=== PATIENT | male | born 1970 | race Caucasian/White ===

== ENCOUNTER 2019-12-10 10:10 | Emergency (ER) | payer MEDICARE, OTHER ==
[2019-12-10] MEDS ORDERED: CLONAZEP ODT0.5 MG PO (10:25)
[2019-12-10] MEDS ORDERED: PREGABALIN50 MG PO (10:26)
[2019-12-10] MEDS ORDERED: ESCITALOPRAM OX10 MG PO (10:27)
[2019-12-10] MEDS ORDERED: GABAPENTIN600 MG PO (10:27)
[2019-12-10 10:50] LABS: HEMATOCRIT 40.3 % (39.0-50.0); HEMOGLOBIN 12.7 g/dl (14.0-18.0); IMMATURE GRANULOCYTES 0.3 % (0.0-5.0); MEAN CELL VOLUME 94.8 fL CALC (80.0-100.0); MEAN CORPUSCULAR HGB 29.9 pG CALC (26.0-32.0); MEAN CORPUSCULAR HGB CONC 31.5 g/dL CAL (32.0-36.0); NEUT# 4.36 thou/uL (1.82-7.42); RED BLOOD COUNT 4.25 mill/uL (4.70-6.10); RED CELL DISTRI WIDTH 12.9 % (11.5-15.5)
[2019-12-10 10:53] LABS: URINE BILIRUBIN - DIPSTICK NEGATIVE (NEGATIVE); URINE BLOOD DIPSTICK NEGATIVE (NEGATIVE); URINE COLOR YELLOW; URINE GLUCOSE - DIPSTICK NEGATIVE (NEGATIVE); URINE KETONE NEGATIVE (NEGATIVE); URINE LEUK ESTERASE NEGATIVE (NEGATIVE); URINE NITRITE - DIPSTICK NEGATIVE (Negative); URINE PROTEIN - DIPSTICK NEGATIVE (NEG-TRACE); URINE SPECIFIC GRAVITY 1.015; URINE UROBILINOGEN - DIPSTICK 0.2 E.U./dL (0.2)
[2019-12-10 10:58] LABS: ALBUMIN 3.8 g/dL (3.2-5.0); ALKALINE PHOSPHATASE 88 u/l (38-126); ANION GAP 12 (6-22 (CALC)); BILIRUBIN, TOTAL 0.3 mg/dL (0.0-1.4); BUN 10 mg/dL (9-20); BUN/CREATININE RATIO 15 (12-20 (CALC)); CARBON DIOXIDE 24 mmol/l (22-30); CHLORIDE 107 mmol/l (95-108); CREATININE 0.6 mg/dL (0.7-1.3); ETHYL ALCOHOL 198 mg/dl (0-30); GFR > 60 ML/MIN (>=60 (CALC)); GFR FOR AFR.AMER. > 60 ML/MIN (>=60 (CALC)); SGOT/AST 46 u/l (17-59); SODIUM 139 mmol/l (137-146); TOTAL PROTEIN 6.6 g/dL (6.3-8.2)
[2019-12-10 11:10] LABS: MYOGLOBIN 22 ng/mL (0 - 121)
[2019-12-10 12:27] VITALS: BP 122/81
== END 2019-12-10 12:27 | disposition short-term general hospital (02) ==
LOC: ED 10:10
PROVIDERS: Emergency Medicine
DX: R45.851 Suicidal ideations (principal); F32.9 Major depressive disorder, single episode, unspecified; F10.10 Alcohol abuse, uncomplicated; F41.9 Anxiety disorder, unspecified; F17.200 Nicotine dependence, unspecified, uncomplicated
CPT/HCPCS: J2060

== ENCOUNTER 2019-12-15 11:15 | Observation (INO) | payer MEDICARE, OTHER ==
[~2019-12-15] VITALS: Ht 182.9 cm; Wt 77.2 kg
[~2019-12-15 11:15] MED LIST: CLONAZEP ODT0.5 MG PO; ESCITALOPRAM OX10 MG PO; GABAPENTIN600 MG PO; PREGABALIN50 MG PO
--- NOTE | 2019-12-15 11:35 | NUR ---
TO ROOM VIA EMS STRETCHER FOR BEDSIDE TRIAGE
--- NOTE | 2019-12-15 12:27 | NUR ---
PT REPEATEDLY STATES HE NEEDS HIS MEDICATIONS AND CAN HE HAVE SOMETHING FOR PAIN AND NAUSEA, AND ASKS EVERYONE THAT WALKS INTO THE ROOM FOR SOMETHING FOR PAIN, REMINDED OF PLAN OF CARE AND TIME RESTRAINTS. VERBALIZED UNDERSTADNING THEN ASKED NEXT PERSON THAT WALKED INTO ROOM-
--- NOTE | 2019-12-15 12:29 | NUR ---
IV ACCESS OBTAINED PT TOOLERATED
[2019-12-15 12:53] LABS: HEMATOCRIT 42.8 % (39.0-50.0); HEMOGLOBIN 13.9 g/dl (14.0-18.0); IMMATURE GRANULOCYTES 0.4 % (0.0-5.0); MEAN CORPUSCULAR HGB 30.2 pG CALC (26.0-32.0); MEAN CORPUSCULAR HGB CONC 32.5 g/dL CAL (32.0-36.0); NEUT# 7.67 thou/uL (1.82-7.42); RED BLOOD COUNT 4.6 mill/uL (4.70-6.10); RED CELL DISTRI WIDTH 12.8 % (11.5-15.5)
[2019-12-15 12:56] LABS: URINE BILIRUBIN - DIPSTICK NEGATIVE (NEGATIVE); URINE BLOOD DIPSTICK NEGATIVE (NEGATIVE); URINE COLOR YELLOW; URINE GLUCOSE - DIPSTICK NEGATIVE (NEGATIVE); URINE KETONE NEGATIVE (NEGATIVE); URINE LEUK ESTERASE NEGATIVE (NEGATIVE); URINE NITRITE - DIPSTICK NEGATIVE (Negative); URINE PROTEIN - DIPSTICK NEGATIVE (NEG-TRACE); URINE SPECIFIC GRAVITY <=1.005; URINE UROBILINOGEN - DIPSTICK 0.2 E.U./dL (0.2)
[2019-12-15 13:11] LABS: ALBUMIN 4.4 g/dL (3.2-5.0); ALKALINE PHOSPHATASE 89 u/l (38-126); BUN 10 mg/dL (9-20); BUN/CREATININE RATIO 15 (12-20 (CALC)); CARBON DIOXIDE 20 mmol/l (22-30); CREATININE 0.7 mg/dL (0.7-1.3); ETHYL ALCOHOL 105 mg/dl (0-30); GFR > 60 ML/MIN (>=60 (CALC)); GFR FOR AFR.AMER. > 60 ML/MIN (>=60 (CALC)); LIPASE 36 u/l (23-300); SGOT/AST 52 u/l (17-59); SODIUM 134 mmol/l (137-146); TOTAL PROTEIN 7.4 g/dL (6.3-8.2)
[2019-12-15 13:13] LABS: ANION GAP 14 (6-22 (CALC)); BILIRUBIN, TOTAL 0.6 mg/dL (0.0-1.4); CHLORIDE 104 mmol/l (95-108)
--- NOTE | 2019-12-15 13:25 | NUR ---
IVF INFUISNG AND PT TOLERATES WELL, CALL COLIN PECK, VS STABLE
--- NOTE | 2019-12-15 13:44 | NUR ---
PT NOW ASKING FOR FOOD STATING COULD I GET SOMETHING TO EAT I THINK THAT WOULD REALLY HELP CALM ME DOWN SOME. NOTIFIED OF PT REQUEST
--- NOTE | 2019-12-15 14:35 | NUR ---
PT RESTING AWARE OF CHAIDEZ ACT AND PLANNED ADMISSION, ALERT AND ORIENTED, CALL SHAW WITHIN REACH
--- NOTE | 2019-12-15 15:16 | NUR ---
FOOD TRAY PROVIDED ADN PT CONINTUES TO COMPLAIN OF PAIN MD NOTIFIED AND NEW ORDERS REC'D.
--- NOTE | 2019-12-15 16:10 | NUR ---
PT RESTING WITH EYES CLOSED, NO FURTHER COMPLAINTS OFFERED AWARE OF PLANNED ADMISSION. CALL SHAW WITHIN REACH
--- NOTE | 2019-12-15 17:05 | NUR ---
REPORT CALLED TO TASHA ROYAL IN ICU
--- NOTE | 2019-12-15 17:15 | NUR ---
PT TO ICU BED 7 VIA WHEELCHAIR ACCOMAPNIED BY ER NURSE AND SITTER. PT TO BED WITHOUT ASSISTANCE. PT IS ALERT AND ORIENTED X3. ADMISSION ASSESSMENT COMPLETED AT THIS TIME. PT IS VERY ABRUPT AND NOT WANTING TO OPEN EYES AND ANSWER QUESTIONS. HE ONLY WANTS "MEDICATIONS FOR ANXIETY". ORIENTED TO ROOM AND UNIT. PT REFUSES TO SIGN BELONGING SHEET AND REFUSES TO SIGN DONT FALL SHEET. CALL LIGHT IN REACH. SITTER AT BEDSIDE. WILL CONTINUE TO MONITOR.
--- NOTE | 2019-12-15 17:17 | NUR ---
PT TRANSPORTED TO ICU WITH ALL BELONGINGS WITH PT AND SITTER WITH PT.
[2019-12-15 17:30] VITALS: BP 117/74
--- NOTE | 2019-12-15 17:30 | NUR ---
PHONED DR FARRIS FOR ORDERS FOR ANXIETY MEDICATION.
[2019-12-15 17:45] VITALS: BP 119/74
--- NOTE | 2019-12-15 17:55 | NUR ---
LAB AT BEDSIDE FOR REPEAT TROPONIN
[2019-12-15 18:00] VITALS: BP 120/73
--- NOTE | 2019-12-15 19:20 | NUR ---
awake. quiet & cooperative. c/o anxiety. does not appear anxious. ativan 0.5mg po given. neurosurgery spine physician shows sinus rhythm hr 72. #18 lac banana bag infusing @ 125cchr. po fluids taken well. has not voided. covid swab collected & sent to lab. fall, air/contact precautions cont. pt aware of kidd act. sitter @ bedside.
[2019-12-15 20:00] VITALS: BP 125/73
--- NOTE | 2019-12-15 22:00 | NUR ---
eyes closed. no distress. manager monitoring shows sinus rhythm.
--- NOTE | 2019-12-15 23:30 | NUR ---
lab here. pt refused blood drawn.
[2019-12-16] VITALS (12 sets, daily range): BP systolic 114–132; BP diastolic 65–84
--- NOTE | 2019-12-16 02:00 | NUR ---
resting quietly. resps even & unlabored. no apparent distress. sitter @ bedside.
--- NOTE | 2019-12-16 04:00 | NUR ---
eyes closed. no distress. monitoring analyst shows sinus rhythm hr 62.
--- NOTE | 2019-12-16 05:00 | NUR ---
lab here. blood drawn.
--- NOTE | 2019-12-16 06:45 | NUR ---
RECIEVED REPORT FROM LEXI MENDEZ. ASSUMED PT CARE.
--- NOTE | 2019-12-16 07:30 | NUR ---
PT A&O X4, ABLE TO MAKE NEEDS KNOWN. CHAIDEZ ACT IN PLACE AND SITTER AT BEDSIDE. PT DENIES CP, SOB OF DISTRESS AT THIS TIME. REMAINS SR ON TELEMETRY, HR 60. AFEBRILE, RESPIRATIONS CLEAR/UNLABORED, LS CLEAR THROUGHOUT. SA02@97%RA, ABDOMEN SOFT NON-TENDER, LBM 8-21-20. PT REPORTS BEING VERY ANXIOUS, REQUESTING MEDICATED. PT MEDICATED ORDERED. PER PT REQUEST. CALL LIGHT IN REACH. WILL MONITOR.
--- NOTE | 2019-12-16 09:00 | NUR ---
DR. FARRIS AT BEDSIDE FOR ASSESSMENT AND TO DISCUSS PLAN OF CARE, NEW ORDERS RECIEVED. ELMA REMAINS AT BEDSIDE.
--- NOTE | 2019-12-16 09:15 | NUR ---
PT OFF UNIT WITH SITTER TO CT OF CHEST VIA WC.
--- NOTE | 2019-12-16 09:45 | NUR ---
PT BACK ON UNIT, TOLERATED WELL. SITTER REMAINS AT BEDSIDE.
--- NOTE | 2019-12-16 11:30 | NUR ---
DIETARY ON UNIT, LUNCH TRAY SET UP. SITTER REMAINS AT BEDSIDE. WILL MONITOR.
--- NOTE | 2019-12-16 12:59 | NUR ---
PT RESTING IN BED WITH COVERS PULLED UP OVER HEAD. RESPIRATIONS EVEN/UNLABORED. NO DISTRESS NOTED AT THIS TIME, SITTER REMAINS AT BEDSIDE.
--- NOTE | 2019-12-16 14:43 | NUR ---
PT RESTING IN BED WATCHING TV. OFFERS NO COMPLAINTS AT THIS TIME. SITTER REMAINS AT BEDSIDE. CALL LIGHT IN REACH. WILL MONITOR.
--- NOTE | 2019-12-16 16:45 | NUR ---
PT RESTING IN BED WITH EYES CLOSED. NO DISTRESS NOTED. SITTER AT BEDSIDE. CALL LIGHT IN REACH. WILL MONITOR.
--- NOTE | 2019-12-16 18:04 | NUR ---
PT RESTING IN BED, EATING DINNER TRAY. SITTER REMAINS AT BEDSIDE. CALL LIGHT IN REACH. WILL MONITOR.
--- NOTE | 2019-12-16 20:00 | NUR ---
ASSESSMENT COMPLETED. IV SITE PATENT AND SL. SITTER AT BEDSIDE. PT. IS RESTING AND CALM AT THIS TIME. FOOD AND NUTRITION SERVICES SUPERVISOR IN PLACE. ENCOURAGED TO CALL FOR ANY NEEDS. CALL LIGHT IS IN REACH. WILL CONTINUE TO MONITOR.
--- NOTE | 2019-12-16 23:05 | NUR ---
PT. SITTING UP IN BED WITH SITTER AT BEDSIDE; CALM WITH NO DISTRESS NOTED. SNACK PROVIDED. WILL CONTINUE TO MONITOR. CALL LIGHT IS IN REACH.
[2019-12-17 01:00] VITALS: BP 92/46
--- NOTE | 2019-12-17 01:00 | NUR ---
RESTING IN BED WITH EYES CLOSED; RESP. EVEN AND UNLABORED. SITTER AT BEDSIDE.
[2019-12-17 03:00] VITALS: BP 127/66
--- NOTE | 2019-12-17 03:35 | NUR ---
PT. RESTING IN BED WITH NO DISTRESS NOTED. HR WILL OCCASSIONALY DROP TO 47 AND THEN RETURN TO 50'S. NO SYMPTOMS NOTED. SITTER AT BEDSIDE.
[2019-12-17 05:15] VITALS: BP 127/75
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
--- NOTE | 2019-12-17 06:34 | NUR ---
PT. C/O GENERALIZED PAIN AND MEDICATED WITH ORDERED PRN MORPHINE; WILL REASSESS. SITTER AT BEDSIDE.
[2019-12-17 08:00] VITALS: BP 115/78
--- NOTE | 2019-12-17 08:48 | NUR ---
PT SEEN AT REST IN THE BED, APPEARS TO BE IN NO ACUTE DISTRESS. SITTER AT BEDSIDE. NO COMPLAINT OF CHEST PAIN OR OTHERWISE. LUNGS CLEAR, RA. BM YESTERDAY. SKIN INTACT.
--- NOTE | 2019-12-17 09:45 | NUR ---
PT SEEN BY DR FARRIS THIS MORNING, DISCUSSES PLAN OF CARE. PT STATES THAT HE NEEDS HIS MEDS AND IT HAS BEEN AN ISSUE TO GET THEM AFTER DISCHARGE. PT APPEARS CALM, NOT THREATENING HIMSELF OR OTHERS. SITTER AT BEDSIDE.
[2019-12-17 14:00] VITALS: BP 114/72
--- NOTE | 2019-12-17 16:21 | NUR ---
PT CONTINUES BEFORE, NO REAL CHANGE IN STATUS. PT DENIES CHEST PAIN OF SHORTNESS OF BREATH. SITTER REMAINS AT BEDSIDE. NO AGGRESSION SEEN.
--- NOTE | 2019-12-17 19:00 | NUR ---
RECEIVED REPORT. PT BEDRESTING. PSA AT BEDSIDE. DENIES PAIN OR DISTRESS.REQUESTED A NICOTENE PATCH OR GUM. MD NOTIFIED. ALSO, REPORTS NAME IS SPELLED WRONG. REGISTRATION NOTIFIED. NAME IS SPELLED THE SAME LAST ADMISSION AND IS SPELLED THE SAME ON THE CHAIDEZ ACT FORM. PT DOES NOT HAVE ANY PHOTO ID OR PHOTO. THEREFORE, REGISTRATION RECOMMENDED LEAVING IT IS AND ASKED THAT PT BRING PHOTO ID TO CHANGE ACCOUNT.
--- NOTE | 2019-12-17 19:53 | NUR ---
CALM COOPERATIVE. WATCHING TV. DRINKING SODA. BEHAVIOR APPROPRIATE. SPEACH IS SOFT AND NONPRESSURED. VS WNL.
[2019-12-17 21:00] VITALS: BP 117/75
--- NOTE | 2019-12-17 21:00 | NUR ---
BEDRESTING. N/C AT THIS TIME. AWAITING NICOTENE PATCH TO BECOME AVAILABLE. WE DISCUSSED QUITTING SMOKING HE HAS GONE THIS LONG (BETWEEN HOSPITAL AND RECEIVING FACILITY) WITHOUT SMOKING. HE AGREED
--- NOTE | 2019-12-17 21:59 | NUR ---
ULTRAM AND NICOTINE PATCH GIVEN PER PATIENT'S REQUEST. BEDRESTING WATCHING TV. REQUESTED HS SNACK-GRANOLA BAR OR SOME KIND OF FRUIT BAR
--- NOTE | 2019-12-18 | NUR ---
bedresting. watching tv. n/c at this time
--- NOTE | 2019-12-18 01:35 | NUR ---
LIGHTS OUT. BEDRESTING WITH EYES CLOSED. DISPLAY ASSOCIATE AT BEDSIDE
--- NOTE | 2019-12-18 02:30 | NUR ---
BEDRESTING EYES CLOSED. RESP EVEN AND NONLABORED. NO DISTRESS NOTED
[2019-12-18 04:31] VITALS: BP 119/80
--- NOTE | 2019-12-18 05:30 | NUR ---
BEDRESTING. TV ON. NAPPING AT INTERVALS. QUIET. N/C PAIN OR DISTRESS. BEHAVIOR APPROPRIATE.
--- NOTE | 2019-12-18 06:45 | NUR ---
REPORT RECEIVED FROM CHILO ROYAL. CARE ASSUMED.
[2019-12-18 07:00] VITALS: BP 130/74
--- NOTE | 2019-12-18 07:00 | NUR ---
PT RESTING IN BED WITH EYES CLOSED. PT AROUSES EASILY TO VERBAL STIMULI. PT IS ALERT AND ORIENTED X3. SHIFT ASSESSMENT COMPLETED AT THIS TIME. IV PATENT X1. CALL LIGHT IN REACH. WILL CONTINUE TO MONITOR.
--- NOTE | 2019-12-18 07:50 | NUR ---
DR FARRIS AT BEDSIDE AT THIS TIME.
--- NOTE | 2019-12-18 08:00 | NUR ---
DM ACT RESCINDED AT THIS TIME
[2019-12-18] MEDS ORDERED: ESCITALOPRAM OX10 MG PO (08:08)
[2019-12-18] MEDS ORDERED: PREGABALIN50 MG PO (08:08)
[2019-12-18] MEDS ORDERED: CLONAZEP ODT0.5 MG PO (08:08)
[2019-12-18] MEDS ORDERED: TRAMADOL HCL50 MG PO (08:08)
[2019-12-18 09:00] VITALS: BP 126/82
--- NOTE | 2019-12-18 10:00 | NUR ---
PHONED POPEYE ACHARYA AT [place] [facility] TO ASSIST PT WITH HOUSING. [facility] TO DELIVER MEDICATIONS. [facility] TO PAY CO PAY. PT GIVEN ALL [facility] [employer] REFERRAL CARDS FOR FOOD. PT EXPLAINED THAT HE WOULD BE ABLE TO GO TO [place] FOR THE NEEDY APPLY FOR GRANTS FOR HOUSING AND WOULD RECEIVED HIS MEDICATIONS TODAY FREE OF CHARGE A MONTH SUPPLY. PT THEN STATES THAT HE WILL NOT LEAVE UNTIL THE AFTERNOON AND AFTER HE HAS SEEN CASE MANAGEMENT. EXPLAINED THAT THE REFERRALS HAD BEEN MADE THIS FAR THROUGH THIS NURSE AND IF HE NEEDED MORE INFORMATION WOULD BE GLAD TO HELP. PT STATES THAT HE NEEDS TO STAY IN A HOTEL AND DOES NOT HAVE MONEY. EXPLAINED THAT HE WOULD NEED TO GO TO THE [place] FOR THE NEEDY AND APPLY FOR THE JULIANNA DISCUSSED AND THAT WOULD GIVE HIM HOUSING. PT THEN STATES THAT HE WOULD NEED TO STAY UNTIL THIS AFTERNOON HE NEEDS REST AND IS IN PAIN. EXPLAINED THAT HE CAN STAY THROUGH LUNCH HIS MEDICATIONS HAVE NOT BEEN DELIVERED FROM [facility] OF YET. PT ABRUPT AND DEMANDING CASE MANAGEMENT AGAIN STATED THAT CASE MANAGEMENT WILL BE IN WHEN AVAILABLE.
--- NOTE | 2019-12-18 10:39 | NUR ---
PT DEMANDING IN ROOM TO SPEAK TO CASE MANAGEMENT STATING THAT WE ARE THROWING HIM OUT ON THE STREET EXPLAINED THAT WE ARE GIVING HIM REFERRALS FOR HOUSING. PT ABRUPT AND NON RECEPTIVE OF STAFF
[2019-12-18 11:00] VITALS: BP 129/88
--- NOTE | 2019-12-18 11:28 | NUR ---
REFERRALS GIVEN TO PATIENT FOR [facility], [facility], [facility] FOOD [employer], [facility] [employer], [facility], [facility], AND [facility]. GAVE AMA BUSINESS CARD UNSURE IF PATIENT HAS PRIMARY PATIENT IS NOT VERY FORTHCOMING WITH INFORMATION. GAVE REFERAL FOR [facility] WELL. WILL ALSO REFER TO [facility].
--- NOTE | 2019-12-18 11:55 | NUR ---
DISCHARGE INSTRUCTIONS REVIEWED WITH PATIENT. ALL REFERRALS GIVEN AND REVIEWED WITH PATIENT. IV DC'D CATH TIP INTACT. VASU BISHOP AT BEDSIDE WELL FOR DC INSTRUCTIONS. PT VERBALIZED UNDERSTANDING.
--- NOTE | 2019-12-18 12:09 | NUR ---
PT UP IN ROOM GETTING DRESSED.
--- NOTE | 2019-12-18 12:30 | NUR ---
Discharge instructions given. Patient verbalizes understanding of same. Discharged in stable condition via Wheelchair to Home with staff. All belongings sent with pt.
== END 2019-12-18 12:30 | disposition home or self-care (01) ==
LOC: ED 11:15 → ED-I 13:33 → ED 14:14 → ICU 14:15
PROVIDERS: Family Medicine; ADMIT Internal Medicine; ATTEND Internal Medicine
DX: R45.851 Suicidal ideations (principal); R07.9 Chest pain, unspecified; F41.9 Anxiety disorder, unspecified; F32.9 Major depressive disorder, single episode, unspecified; F10.10 Alcohol abuse, uncomplicated; G62.9 Polyneuropathy, unspecified; G89.29 Other chronic pain; F17.200 Nicotine dependence, unspecified, uncomplicated; T42.4X6A Underdosing of benzodiazepines, initial encounter; Z91.120 Patient's intentional underdosing of medication regimen due to financial hardship; Z59.0 Homelessness; Z20.828 Contact with and (suspected) exposure to other viral communicable diseases
CPT/HCPCS: Q9967

== ENCOUNTER 2020-01-10 15:09 | Emergency (ER) | payer MEDICARE ==
[~2020-01-10] VITALS: Ht 182.9 cm; Wt 77.3 kg
[~2020-01-10 15:09] MED LIST changes: +TRAMADOL HCL50 MG PO
[2020-01-10 16:00] LABS: HEMATOCRIT 43.3 % (39.0-50.0); HEMOGLOBIN 13.6 g/dl (14.0-18.0); IMMATURE GRANULOCYTES 0.5 % (0.0-5.0); MEAN CORPUSCULAR HGB 29.8 pG CALC (26.0-32.0); MEAN CORPUSCULAR HGB CONC 31.4 g/dL CAL (32.0-36.0); NEUT# 3.51 thou/uL (1.82-7.42); RED BLOOD COUNT 4.56 mill/uL (4.70-6.10)
[2020-01-10 16:02] LABS: URINE BILIRUBIN - DIPSTICK NEGATIVE (NEGATIVE); URINE BLOOD DIPSTICK NEGATIVE (NEGATIVE); URINE COLOR YELLOW; URINE GLUCOSE - DIPSTICK NEGATIVE (NEGATIVE); URINE KETONE NEGATIVE (NEGATIVE); URINE LEUK ESTERASE NEGATIVE (NEGATIVE); URINE NITRITE - DIPSTICK NEGATIVE (Negative); URINE PROTEIN - DIPSTICK NEGATIVE (NEG-TRACE); URINE UROBILINOGEN - DIPSTICK 0.2 E.U./dL (0.2)
[2020-01-10 16:20] LABS: ALBUMIN 4.1 g/dL (3.2-5.0); ALKALINE PHOSPHATASE 59 u/l (38-126); BILIRUBIN, TOTAL 0.4 mg/dL (0.0-1.4); BUN 8 mg/dL (9-20); BUN/CREATININE RATIO 8 (12-20 (CALC)); CHLORIDE 107 mmol/l (95-108); ETHYL ALCOHOL 0 mg/dl (0-30); GFR > 60 ML/MIN (>=60 (CALC)); GFR FOR AFR.AMER. > 60 ML/MIN (>=60 (CALC)); POTASSIUM 3.9 mmol/l (3.5-5.1); SGOT/AST 20 u/l (17-59); SODIUM 140 mmol/l (137-146); TOTAL PROTEIN 6.7 g/dL (6.3-8.2)
[2020-01-10 16:26] LABS: ANION GAP 10 (6-22 (CALC)); CARBON DIOXIDE 27 mmol/l (22-30)
[2020-01-10 18:55] VITALS: BP 107/79
== END 2020-01-10 18:55 | disposition short-term general hospital (02) ==
LOC: ED 15:09
PROVIDERS: Family Medicine
DX: R45.851 Suicidal ideations (principal); F41.9 Anxiety disorder, unspecified; F32.9 Major depressive disorder, single episode, unspecified; F17.210 Nicotine dependence, cigarettes, uncomplicated; Z59.0 Homelessness